=== PATIENT | female | born 1950 | race African-American/Black ===

== ENCOUNTER 2017-04-26 18:27 | Emergency (ER) | payer MEDICARE, MEDICAID ==
[~2017-04-26] VITALS: Ht 154.9 cm; Wt 86.2 kg
[2017-04-26] MEDS ORDERED: ROBAXIN-750750 MG PO (18:34)
[2017-04-26] MEDS ORDERED: IBUPROFEN600 MG ORAL (18:34)
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
[2017-04-26] MEDS ORDERED: oxyCODONE HCL/Acetaminophen 5/325mg ORAL ONE (18:45)
[2017-04-26 19:08] VITALS: BP 133/76
== END 2017-04-26 19:08 | disposition home or self-care (01) ==
LOC: EDBD 18:27 → EMR 18:54
DX: S76.911A Strain of unspecified muscles, fascia and tendons at thigh level, right thigh, initial encounter (principal); Y93.21 Activity, ice skating; Y92.89 Other specified places as the place of occurrence of the external cause; I10 Essential (primary) hypertension
CPT/HCPCS: 99283